=== PATIENT | male | born 1935 | race Caucasian/White ===

== ENCOUNTER → 2017-11-29 08:07 | Outpatient (CLI) | payer MEDICARE, BC | END | disposition home or self-care (01) | LOC: D.RAD 08:07 | DX: R13.10 Dysphagia, unspecified (principal) ==

== ENCOUNTER → 2017-12-11 12:25 | Outpatient (CLI) | payer MEDICARE, BC | END | disposition home or self-care (01) | LOC: D.RAD 12:25 | DX: R13.10 Dysphagia, unspecified (principal) ==

== ENCOUNTER 2018-01-09 08:20 | Day surgery (SDC) | payer MEDICARE, BC ==
[~2018-01-09] VITALS: Ht 170.2 cm; Wt 70.9 kg
--- NOTE | ~2018-01-09 | OP ---
PATIENT NAME: SHAMIR LIU MEDICAL RECORD: [id number] :37 LOCATION:[facility] ADMISSION DATE: SURGEON: FOX ANN DO DATE OF OPERATION: 01/09/2018 PROCEDURE: Colonoscopy with polypectomy. INDICATIONS FOR PROCEDURE: Constipation, periumbilical abdominal pain. SCOPE: Olympus video pediatric colonoscope. MEDICATIONS: Propofol 300 mg IV per anesthesia. WITHDRAWAL TIME: 14 minutes. ESTIMATED BLOOD LOSS: Minimal. COMPLICATIONS: None. FINDINGS: Informed consent was given. The patient was made comfortable with the above medication. After reaching an adequate level of sedation by slow IV push, the patient was placed on his left side. A digital rectal examination was performed and was normal. There was some enlargement of the prostate without any nodules palpated. The endoscope was advanced under direct visualization through the rectum to the cecum, confirmed by the presence of the appendiceal orifice and ileocecal valve. The endoscope was slowly withdrawn and the mucosa was carefully examined. The prep quality was good. There were 4 polyps visualized on today's examination. The first was located in the cecum. It was a benign appearing sessile polyp, which measured approximately 5 mm in diameter. It was removed using a cold snare in 1 piece. There were 2 polyps located in the ascending colon, which ranged in size from 3-5 mm in diameter. They were both a mix between sessile and flat polyp with a lacy pattern. They were both removed using a cold snare. In the sigmoid colon, there was a benign appearing sessile polyp, which measured approximately 3-4 mm in diameter. It was removed using a cold snare in 1 piece. There was moderate diverticulosis in the sigmoid colon without evidence of diverticulitis. Retroflexion was performed in the rectum with visualization of grade I internal hemorrhoids without bleeding. The endoscope was withdrawn from the patient. The patient tolerated the procedure well and there were no complications. IMPRESSION: 1. Moderate diverticulosis of the sigmoid colon. 2. Grade I internal hemorrhoids without bleeding. 3. Four separate polyps removed as described above. Locations included the cecum, ascending colon, and sigmoid colon. PLAN AND RECOMMENDATIONS: 1. Discharge home when recovery parameters are met. 2. Follow up biopsy specimen results. 3. High fiber diet. 4. Supplement diet with Metamucil 1 tablespoon daily. 5. MiraLax 1 cap daily for constipation. 6. Notify the GI clinic if constipation does not improve with the combination of Metamucil and MiraLax. If this is the case, we will consider adding Linzess to medication regimen. OPERATIVE REPORT [id number] SHAMIR LIU. No further colonoscopies are necessary based on the patient's age, unless symptoms warrant evaluation. TRANSINT:[id number] Voice Confirmation ID: [id number] DOCUMENT ID: [id number] FOX ANN DO at 1422 CC: [id number] DICTATION DATE: 01/09/18 1055 A R COLLECTIONS REP: 01/09/18 1107 [facility] 01/09/18 [address] [place] [address]
[2018-01-09] MEDS ORDERED: PROSCAR5 MG PO (08:46)
[2018-01-09] MEDS ORDERED: TERAZOSIN HCL2 MG (08:47)
[2018-01-09] MEDS ORDERED: SYNTHROID50 MCG PO (08:48)
[2018-01-09] MEDS ORDERED: FISH OIL 1,0001 CA1 PO (08:49)
[2018-01-09] MEDS ORDERED: SUPER B COMPLE150 MG PO (08:49)
[2018-01-09] MEDS ORDERED: CENTRUM MEN'S1 EACH PO (08:49)
[2018-01-09] MEDS ORDERED: GLUCOSAMINE HC500 MG (08:50)
[2018-01-09] MEDS ORDERED: MELATONIN10 M1 PO (08:50)
[2018-01-09] MEDS ORDERED: PROBIOTIC250 MG PO (08:50)
[2018-01-09 09:00] VITALS: BP 133/78; Ht 170.2 cm; Wt 70.9 kg
[2018-01-09 09:06] LABS: BASOPHILS 0.1 % (0-2); EOSINOPHILS 0.3 % (0-7); HEMATOCRIT 42.8 % (42.0-54.0); HEMOGLOBIN 14.6 g/dL (13.5-17.5); IMMATURE GRANULOCYTES 0.4 % (0-5); LYMPHOCYTES 27.2 % (15-50); MCH 34.7 pg (26.0-34.0); MCHC 34.1 g/dL (31.0-37.0); MCV 101.7 fL (80.0-100.0); MONOCYTES 8.2 % (2-11); NEUTROPHILS 63.8 % (40-80); PLATELET COUNT 155 10x3/uL (130-400); RBC 4.21 10x6/uL (4.20-6.10); RDW 13.3 % (11.5-14.5)
[2018-01-09 09:19] LABS: ANION GAP 13.9 mmol/L (8-16); CALCIUM 8.4 mg/dL (8.5-10.1); CARBON DIOXIDE 25.4 mmol/L (21.0-32.0); CREATININE - SERUM 1.7 mg/dL (0.6-1.3); POTASSIUM - SERUM 4.3 mmol/L (3.5-5.1)
== END 2018-01-09 11:37 | disposition home or self-care (01) ==
LOC: D.OPS 08:20
PROVIDERS: Anesthesiology
DX: K57.30 Diverticulosis of large intestine without perforation or abscess without bleeding (principal); K64.0 First degree hemorrhoids; D12.0 Benign neoplasm of cecum; D12.2 Benign neoplasm of ascending colon; K63.5 Polyp of colon; Z01.812 Encounter for preprocedural laboratory examination

== ENCOUNTER 2018-01-21 10:35 | Day surgery (SDC) | payer MEDICARE, BC ==
[~2018-01-21] VITALS: Ht 170.2 cm; Wt 70.5 kg
--- NOTE | ~2018-01-21 | OP ---
PATIENT NAME: SHAMIR LIU MEDICAL RECORD: [id number] :37 LOCATION:[facility] ADMISSION DATE: SURGEON: FOX ANN DO DATE OF OPERATION: 01/21/2018 PROCEDURE: EGD with biopsies. INDICATIONS FOR PROCEDURE: Dysphagia, GERD, unspecified upper abdominal pain. SCOPE: Olympus video gastroscope. MEDICATIONS: Propofol 100 mg IV per anesthesia. ESTIMATED BLOOD LOSS: Minimal. COMPLICATIONS: None. FINDINGS AND DESCRIPTION OF PROCEDURE: Informed consent was given. The patient was made comfortable with the above medication. After reaching an adequate level of sedation by slow IV push, the patient was placed on his left side. The endoscope was advanced under direct visualization through the mouth to the second portion of the duodenum. The upper, middle, and lower thirds of the esophagus appeared normal. There were no strictures, rings, or other abnormalities. Cold forceps biopsies were taken from the mid esophagus to rule out the presence of eosinophils. At the GE junction, there was evidence of LA class B reflux-induced esophagitis. Cold forceps, biopsies were taken at the GE junction to rule out the presence of Burgos's mucosa. The endoscope was advanced beyond the GE junction into the stomach and retroflexed to view the cardia, where a small sliding hiatal hernia was present. Throughout the fundus, body, and antrum of the stomach, there was some gastritis characterized by nodular mucosa, erythema, and granularity. Multiple cold forceps biopsies were taken to submit for histopathology and to rule out the presence of H. pylori. In the prepyloric region, there was a single, superficial ulcer with no bleeding stigmata present. The endoscope was advanced beyond the pylorus into the duodenum where there was some erythema and granularity consistent with possible duodenitis. Cold forceps biopsies were taken to submit for histopathology. The endoscope was then withdrawn from the patient. The patient tolerated the procedure well and there were no complications. IMPRESSION: 1. LA class B reflux-induced esophagitis. 2. Small sliding hiatal hernia. 3. Gastritis. 4. Gastric ulcer, duodenitis. PLAN AND RECOMMENDATIONS: 1. Discharge home when recovery parameters are met. 2. Follow up biopsy specimen results. 3. Treat for H. pylori if indicated by biopsies. 4. Continue omeprazole 40 mg daily. 5. Add ranitidine 150 mg p.o. at bedtime and Carafate suspension 1 gram t.i.d. times 2 weeks. 6. Consider gastric emptying scan if biopsies are normal and further workup of patient's symptoms of bloating and abdominal pain. 7. Further workup pending results of above. OPERATIVE REPORT [id number] SHAMIR LIU TRANSINT:[id number] Voice Confirmation ID: [id number] DOCUMENT ID: [id number] FOX ANN DO at 1012 CC: [id number] DICTATION DATE: 01/21/18 1150 MANAGER PROJECT: 01/21/18 1301 [facility] 01/21/18 [facility] [address] [place] [address]
[~2018-01-21 10:35] MED LIST: CENTRUM MEN'S1 EACH PO; FISH OIL 1,0001 CA1 PO; GLUCOSAMINE HC500 MG; MELATONIN10 M1 PO; PROBIOTIC250 MG PO; PROSCAR5 MG PO; SUPER B COMPLE150 MG PO; SYNTHROID50 MCG PO; TERAZOSIN HCL2 MG
[2018-01-21 10:42] LABS: HEMATOCRIT 41.4 % (42.0-54.0); HEMOGLOBIN 14.3 g/dL (13.5-17.5); MCHC 34.5 g/dL (31.0-37.0); MCV 101.5 fL (80.0-100.0); MEAN PLATELET VOLUME 9.4 fL (7.4-10.4); RBC 4.08 10x6/uL (4.20-6.10); RDW 12.9 % (11.5-14.5); WBC 5.1 10x3/uL (4.8-10.8)
[2018-01-21 11:00] VITALS: BP 142/77; Ht 170.2 cm; Wt 70.5 kg
== END 2018-01-21 12:52 | disposition home or self-care (01) ==
LOC: D.OPS 10:35
PROVIDERS: Anesthesiology
DX: K21.0 Gastro-esophageal reflux disease with esophagitis (principal); K44.9 Diaphragmatic hernia without obstruction or gangrene; K29.00 Acute gastritis without bleeding; K29.80 Duodenitis without bleeding

== ENCOUNTER → 2018-04-17 15:39 | Outpatient (CLI) | payer MEDICARE, BC ==
[2018-01-21 11:00] VITALS: BMI 24.3
== END | disposition home or self-care (01) ==
LOC: D.US 15:39
DX: R94.4 Abnormal results of kidney function studies (principal)

== ENCOUNTER → 2018-06-25 09:28 | Outpatient (CLI) | payer MEDICARE, BC | END | disposition home or self-care (01) | LOC: D.US 09:28 | DX: N18.3 Chronic kidney disease, stage 3 (moderate) (principal) ==

== ENCOUNTER 2019-02-20 13:31 | Emergency (ER) | payer MEDICARE, BC ==
[~2019-02-20] VITALS: Ht 170.2 cm; Wt 70.5 kg
[2019-02-20 13:40] VITALS: Ht 170.2 cm; Wt 70.5 kg
[2019-02-20 14:22] LABS: BASOPHILS 0.3 % (0-2); EOSINOPHILS 2.5 % (0-7); HEMATOCRIT 45.7 % (42.0-54.0); HEMOGLOBIN 15.4 g/dL (13.5-17.5); LYMPHOCYTES 36.9 % (15-50); MCH 33.6 pg (26.0-34.0); MCHC 33.7 g/dL (31.0-37.0); MCV 99.8 fL (80.0-100.0); MEAN PLATELET VOLUME 9.4 fL (7.4-10.4); MONOCYTES 7.1 % (2-11); NEUTROPHILS 53.2 % (40-80); PLATELET COUNT 138 10x3/uL (130-400); RBC 4.58 10x6/uL (4.20-6.10); RDW 12.4 % (11.5-14.5); WBC 6.1 10x3/uL (4.8-10.8)
[2019-02-20 14:30] LABS: APTT 33.8 SECONDS (22.8-39.4); INR 0.96 (0.85-1.17); PROTIME 12.3 SECONDS (11.6-15.0)
[2019-02-20 14:36] LABS: CALC OSMOLALITY 285 mosm/kg (275-300); CALCIUM 8.7 mg/dL (8.5-10.1); CARBON DIOXIDE 26.7 mmol/L (21.0-32.0); CHLORIDE - SERUM 104 mmol/L (98-107); CREATININE - SERUM 1.9 mg/dL (0.6-1.3); GLUCOSE 86 mg/dL (74-106); POTASSIUM - SERUM 4.6 mmol/L (3.5-5.1); SODIUM 141 mmol/L (136-145); UREA NITROGEN 30 mg/dL (7-18); eGFR NON AFRICAN AMERICAN 36 mL/min (90-120)
[2019-02-20 15:04] LABS: ALBUMIN 3.8 g/dL (3.4-5.0); ALKALINE PHOSPHATASE 61 U/L (46-116); ALT (SGPT) 28 U/L (10-68); AMYLASE - SERUM 105 U/L (25-115); BILIRUBIN - TOTAL 0.63 mg/dL (0.2-1.3); CREATINE KINASE 108 UL (21-232); LIPASE 268 U/L (73-393); PROTEIN - SERUM 7.1 g/dL (6.4-8.2); TROPONIN-I < 0.017 ng/mL (0.000-0.060)
[2019-02-20 17:39] VITALS: BP 149/83
== END 2019-02-20 17:39 | disposition home or self-care (01) ==
LOC: D.ER 13:31
PROVIDERS: Family Medicine
DX: M79.602 Pain in left arm (principal); R10.33 Periumbilical pain; E07.9 Disorder of thyroid, unspecified

== ENCOUNTER → 2019-03-13 08:25 | Outpatient (CLI) | payer MEDICARE, BC ==
[2019-02-20 13:40] VITALS: BMI 24.3
== END | disposition home or self-care (01) ==
LOC: D.US 08:25 → D.NM 09:30
PROVIDERS: ATTEND Internal Medicine Gastroenterology
DX: R10.11 Right upper quadrant pain (principal); R10.33 Periumbilical pain; R68.81 Early satiety; R14.0 Abdominal distension (gaseous)

== ENCOUNTER → 2019-04-22 08:26 | Outpatient (CLI) | payer MEDICARE, BC ==
[2019-02-20 13:40] VITALS: BMI 24.3
--- NOTE | 2019-04-24 16:48 | ST ---
PATIENT:SHAMIR LIU MEDICAL RECORD: [id number] SEX: M LOCATION:[facility] ORDER #: ADMISSION DATE: 04/22/19 AGE OF PATIENT: 83 REFERRING PHYSICIAN: INTERPRETING PHYSICIAN: TERA DUMAS MD DATE OF SERVICE: 04/22/2019 PROCEDURE: Nuclear stress test. INDICATION: Chest pain, shortness of breath. He was exercised on standard Lexiscan protocol with 33 mCi of sestamibi injected at peak stress, 11 mCi used previously for rest images. FINDINGS: Gated SPECT reveals a preserved ejection fraction at 70% with good wall motioning and thickening and brightening throughout all segments. SPECT imaging: Cardiolite was used as myocardial perfusion agent. There is reversibility anteriorly and apically. This includes the basal, mid, apical, anterior segments as well as the apex itself. The degree of reversibility is mild. The amount of myocardium involved is moderate. OVERALL IMPRESSION: 1. This is an intermediate risk abnormal nuclear stress test. Reversible ischemia anteroapically. 2. Gated SPECT reveals preserved ejection fraction at 70%. The current scan does suggest the presence of hemodynamically significant coronary artery disease. TRANSINT:[id number] Voice Confirmation ID: [id number] DOCUMENT ID: [id number] TERA DUMAS MD at 1648 CC: SANDOVAL ÁLVAREZ MD [id number] DICTATION DATE: 04/23/19 1048 IC DESIGNER STANDARD CELLS: 04/24/19 0647 [facility] CLI 04/22/19 [address] [place] [address]
== END | disposition home or self-care (01) ==
LOC: D.HCCARDIO 08:26
PROVIDERS: ATTEND Internal Medicine Interventional Cardiology
DX: R07.9 Chest pain, unspecified (principal)

== ENCOUNTER 2019-04-30 08:49 | Outpatient (CLI) | payer MEDICARE, BC ==
[~2019-04-30] VITALS: Ht 167.6 cm; Wt 70.5 kg
--- NOTE | ~2019-04-30 | OP ---
PATIENT NAME: SHAMIR LIU MEDICAL RECORD: [id number] :37 LOCATION:D.CAT ADMISSION DATE: SURGEON: TERA DUMAS MD DATE OF OPERATION: 04/30/2019 PROCEDURES: 1. Left heart catheterization. 2. Selective coronary angiography. 3. Left ventriculogram. INDICATIONS: Angina, abnormal nuclear stress test. PROCEDURE IN DETAIL: After informed consent was obtained and after a detailed explanation of the risks, benefits as well as alternative therapies, the patient elected to proceed with angiogram and heart catheterization. The right radial area was prepped and draped in normal sterile fashion. Right radial artery was cannulated via modified Seldinger technique with placement of 5-Arabic sheath. All catheters exchanged through this sheath. FINDINGS: Left ventriculogram was performed in standard 30-degree MONTENEGRO view, reveals good cardiac wall motion throughout all segments. Overall ejection fraction estimated 60%. SELECTIVE CORONARY ANGIOGRAPHY: Left main, left anterior descending, left circumflex, right coronary artery are all smooth-walled vessels with no angiographic evidence of coronary artery disease. OVERALL IMPRESSION: 1. No angiographic evidence of coronary artery disease. 2. Normal left heart pressures. 3. Normal left ventricular systolic function. Chest pain is noncardiac in etiology. No further cardiac workup needs to be ascertained. TRANSINT:[id number] Voice Confirmation ID: [id number] DOCUMENT ID: [id number] TERA DUMAS MD CC: [id number] DICTATION DATE: 04/30/19 1125 FOOD DEMONSTRATOR: 04/30/19 1340 [facility] [address] [place] [address]
--- NOTE | ~2019-04-30 | HEMODYNAMI ---
PATIENT:SHAMIR LIU MEDICAL RECORD: [id number] : 37 LOCATION:[facility] ADMISSION DATE: 04/30/19 Generatedon:04/30/201911:28 Patient name: SHAMIR LIU Patient #: [id number] SSN: [id number] : 1935 Date of study: 04/30/2019 Page: Of Hemodynamic Procedure Report Patient Data Patient Demographics Procedure consent was obtained First Name: SHAMIR Gender: Male Last Name: NOE : 1935 [facility] Initial: D Age: 83 year(s) Patient #: [id number] Race: SSN: [id number] Additional ID: [id number] Contact details Address: [address] [address] State: [place] City: [place] Zip code: [address] Past Medical History Allergies: No known allergies Admission Admission Data Admission Date: 04/30/2019 Admission Time: 8:49 Arrival Date: 04/30/2019 Arrival Time: 0:00 Insurance Payor: Medicare [facility] #: [id number] Height (in.): 66.14 BSA: 1.79 (m2) Height (cm.): 168 BMI: 24.8 (kg/m2) Weight (lbs.): 154.32 Weight (kg.): 70 Lab Results Lab Result Date: 04/30/2019 Lab Result Time: 0:00 Biochemistry Name Units Result Min Max BUN mg/dl 29 --(----)-* 7 18 Creatinine mg/dl 1.7 --(----)-* 0.6 1.3 eGFR ml/min 41 *-(----)-- 90 120 NONAFRICAN CBC Name Units Result Min Max Hematocrit % 40.5 -*(----)-- 42 54 Hemoglobin g/dl 13.5 --(*---)-- 13.5 17.5 Procedure Procedure Types Cath Procedure Diagnostic Procedure LHC LHC w/Coronaries Procedure Description Procedure Date Procedure Date: 04/30/2019 Procedure Start Time: 11:15 Procedure End Time: 11:25 Procedure Staff Name Function Wyatt Rocha MD Performing Physician Kim Galvin RT Monitor Emelia Roberts RT Scrub Arcadio Goldman RN Nurse Procedure Data Cath Procedure Fluoroscopy Diagnostic fluoroscopy Total fluoroscopy Time: 2 time: 2 min min Diagnostic fluoroscopy Total fluoroscopy dose: 481 dose: 481 mGy mGy Contrast Material Contrast Material Type Amount (ml) Isovue 370 58 Entry Location Entry Primary Successful Side Size Upsize Upsize Entry Closure Mckinney ccessful Closure Location (Fr) 1 (Fr) 2 (Fr) Remarks Device Remarks Radial Right 6 Fr Mechanical artery Short Compression Estimated blood loss: 5 ml Diagnostic catheters Device Type Used For End Catheter Placement DIAGNOSTIC Adams 110cm 5 Procedure Fr catheter ([id number]) Procedure Complications No complications Procedure Medications Medication Administration Route Dosage 0.9% NaCl I.V. 100 ml/hr Oxygen etCO2 Nasal cannula 2 l/min Heparin Flush Bag added to field 2 bags (1000units/500ml NS) Lidocaine 2% added to field 20 Radial Cocktail added to field 1 syringe (Verapamil 2mg/Nitro 400mcg/Heparin 1500units) Versed I.V. 1 mg Fentanyl I.V. 25 mcg Radial Cocktail I.A. 1 syringe (Verapamil 2mg/Nitro 400mcg/Heparin 1500units) Hemodynamics Rest BSA: 1.79 (m2) HGB: 13.5 (g/dl) O2 Consumption: Estimated: 197.43 (ml/min) O2 Co nsumption indexed: Estimated:110.3 (ml/min/m) Heart Rate: 60 (bpm) Snapshots Pre Cath Intra NCS Post Cath Vital Signs Time Heart Resp SPO2 etCO2 NIBP (mmHg) Rhythm Pain Sedation Rate (ipm) (%) (mmHg) Status Level (bpm) 11:10:46 50 12 98 30.7 125/86(93) NSR 0 (11) 10(A) , No pain 11:14:54 61 14 94 37.4 124/70(104) NSR 0 (11) 10(A) , No pain 11:19:14 66 15 96 41.2 108/56(75) NSR 0 (11) 9(A) , No pain 11:23:32 75 23 95 41.9 113/59(86) NSR 0 (11) 9(A) , No pain Medications Time Medication Route Dose Verified Delivered Reason Notes Effectiveness by by 11:09:38 0.9% NaCl I.V. 100 Arcadio Arcadio Per ml/hr Jones Goldman physician RN RN 11:10:01 Oxygen etCO2 2 l/min Arcadio Arcadio for low 02 Nasal Jones Goldman sats cannula RN RN 11:10:11 Heparin Flush added 2 bags Arcadio Arcadio used for Bag to Jones Goldman procedure (1000units/500ml field RN RN NS) 11:10:22 Lidocaine 2% added 20ml Arcadio Arcadio for local to vial Lorigan Lorigan anesthetic field RN RN 11:10:38 Radial Cocktail added 1 Arcadio Arcadio used for (Verapamil to syringe Lorigan Jones procedure 2mg/Nitro field FRANK RN 400mcg/Heparin 1500units) 11:14:19 Versed I.V. 1 mg Arcadio Arcadio for sedation Jones Goldman RN RN 11:14:26 Fentanyl I.V. 25 mcg Arcadio Arcadio for sedation Jones Goldman RN RN 11:18:17 Radial Cocktail I.A. 1 Arcadio Wyatt for (Verapamil syringe Jones Rocha MD vasodilation 2mg/Nitro RN 400mcg/Heparin 1500units) Procedure Log Time Note 10:50:14 Informed consent obtained and on chart 10:53:13 Lab Result : BUN 29 mg/dl 10:53:13 Lab Result : Hematocrit 40.5 % 10:53:13 Lab Result : eGFR NONAFRICAN 41 ml/min 10:53:13 Lab Result : Creatinine 1.7 mg/dl 10:53:13 Lab Result : Hemoglobin 13.5 g/dl 10:53:25 Arrival Date: 04/30/2019 12:00:00 AM 10:53:54 Insurance Payor : Medicare 10:53:59 Patient Height : 66.14 inches 10:54:05 Patient Weight : 154.32 lbs 10:55:15 Procedure Status Elective Heart Cath (OP). 10:55:21 Arcadio Goldman RN sent for patient. Start room use. 10:55:24 Time tracking: Regular hours (M-F 7:00 - 5:00) 10:55:33 Plan of Care:Hemodynamics will remain stable., Cardiac rhythm will remain stable., Comfort level will be maintained., Respiratory function will remain adequate., Patient/ family verbilizes understanding of procedure., Procedure tolerated without complication., Recovers from procedure without complications.. 10:57:04 Patient allergic to No known allergies 10:57:47 Stress Test: yes; abnormal ANTEROAPICALLY 10:58:12 ACC Patient presents with Stable Angina CCS Anginal Class 2--Slight limitation of ordinary activity. 11:00:45 Risk of Mortality: 1.0 11:00:49 Risk of blood transfusion: 0.6 11:00:53 Risk of FRITZ: 4.0 11:01:46 Patient received from Pre/Post Procedure Room to CCL 1 Alert and oriented. Tansferred to table in Supine position. 11:01:50 Warm blankets applied, and sylvia hugger turned on for patient comfort. 11:01:51 Correct patient and procedure confirmed by team. 11:01:52 ECG and BP/O2 sat monitors applied to patient. 11:09:14 Pre procedure: right dorsailis pedis pulse 1+ Palpable, but thready & weak; easily obliterated 11:09:23 Vital chart was started 11:09:38 0.9% NaCl 100 ml/hr I.V. was administered by Arcadio Goldman RN; Per physician; Verbal order read back and verified. 11:10:01 Oxygen 2 l/min etCO2 Nasal cannula was administered by Arcadio Goldman RN; for low 02 sats; Verbal order read back and verified. 11:10:11 Heparin Flush Bag (1000units/500ml NS) 2 bags added to field was administered by Arcadio Goldman RN; used for procedure; Verbal order read back and verified. 11:10:22 Lidocaine 2% 20ml vial added to field was administered by Arcadio Goldman RN; for local anesthetic; Verbal order read back and verified. 11:10:38 Baseline sample Acquired. 11:10:38 Radial Cocktail (Verapamil 2mg/Nitro 400mcg/Heparin 1500units) 1 syring e added to field was administered by Arcadio Goldman RN; used for procedure; Verbal order read back and verified. 11:10:44 Rhythm: sinus rhythm 11:10:45 Full Disclosure recording started 11:10:57 H&P Date Dictated: 04/08/2019 Within 30 days and on chart.. 11:10:58 Pre-procedure instructions explained to patient. 11:10:58 Pre-op teaching completed and patient verbalized understanding. 11:11:01 Family in waiting room. 11:11:03 Is the patient allergic to Iodine/contrast media? No. 11:11:05 Was the patient premedicated? N/A 11:11:07 Is patient on blood thinner?No 11:11:09 Patient diabetic? No. 11:11:11 If diabetic: On Metformin? N/A 11:11:12 - 11:11:15 ----Pre-sedation anethsthesia assessment.---- 11:12:41 Previous problem with sedation/anesthesia? No ? 11:12:42 Snore? Yes 11:12:43 Sleep apnea? No 11:12:45 Deviated septum? No 11:12:46 Opens mouth fully? Yes 11:12:47 Sticks out tongue? Yes 11:12:49 Airway obstruction? No ? 11:12:51 Dentures? No ? 11:12:53 Modified Pedro's test Ulnar < 7 seconds 11:12:56 Patient pain scale 0/10 ?. 11:13:31 IV patent on arrival in left antecubital with 0.9% NaCl at O. 11:13:37 Right Radial & Right Groin area was prepped with chlora-prep and draped in sterile fashion 11:13:38 Alarms reviewed by R. N. 11:13:39 Sharps counted by scrub and verified by R.N. 11:13:40 --------ALL STOP TIME OUT------ 11:13:40 Final Timeout: patient, procedure, and site verified with staff and physician. All members of the team are in agreement. 11:13:42 Right Radial & Right Groin site verified by team. 11:13:46 Fire Safety Assessment: A--An alcohol-based skin anteseptic being used preoperatively., C--Open oxygen or nitrous oxide is being used., D--An ESU, laser, or fiber-optic light is being used. 11:13:50 Physical assessment completed. ASA score P 2 - A patient with mild systemic disease as per Wyatt Rocha MD. 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 11:14:02 Maximum allowable contrast dose (3.7 X eGFR X 0.75)41 ml. 11:14:06 Sedation plan: IV Moderate Sedation Medication:Versed, Fentanyl 11:14:11 Use device set Radial Dx or PCI 11:14:13 ACIST Syringe (14330) opened to sterile field. 11:14:13 Medline Cath Pack ([id number]) opened to sterile field. 11:14:14 Bag Decanter (2002) opened to sterile field. 11:14:15 ACIST Hand Control (48599) opened to sterile field. 11:14:15 ACIST Manifold (95319) opened to sterile field. 11:14:16 Tegaderm 4 x 4 (1626W) opened to sterile field. 11:14:17 MBrace Wrist Support ([id number]) opened to sterile field. 11:14:19 Versed 1 mg I.V. was administered by Arcadio Goldman RN; for sedation; Verbal order read back and verified. 11:14:19 EMERALD Guide Wire (120-373) opened to sterile field. 11:14:20 SHEATH 6FR RAIN (1373976) opened to sterile field. 11:14:26 Fentanyl 25 mcg I.V. was administered by Arcadio Goldman RN; for sedation; Verbal order read back and verified. 11:15:11 Procedure started. 11:15:41 Local anesthetic to right radial artery with Lidocaine 2% by Wyatt Rocha MD.INITIAL ACCESS ONLY 11:17:12 A 6 Fr Short sheath was inserted into the Right Radial artery 11:17:27 A DIAGNOSTIC Adams 110cm 5 Fr catheter (083825) was advanced over the wire and used for Procedure. 11:18:10 Injector settings: Ml/sec: 5, Volume: 15, 11:18:13 LV gram done using MONTENEGRO 11:18:17 Radial Cocktail (Verapamil 2mg/Nitro 400mcg/Heparin 1500units) 1 syring e I.A. was administered by Wyatt Rocha MD; for vasodilation; Verbal order read back and verified. 11:18:48 EF : 60 % 11:18:52 LCA angiography performed. 11:18:57 Injector settings: Ml/sec: 3, Volume: 6, 11:20:47 UNABLE TO CANNULATE WITH CATHETER, REMOVED AND CHANGED TO AR 2 CATHETER . 11:21:04 GUIDE 6FR AR 2.0 catheter (CN1PO64) opened to sterile field. 11:22:01 RCA angiography performed. 11:22:23 Catheter removed. 11:22:30 ZEPHYR REGULAR TR BAND (985139) opened to sterile field. 11:22:58 Sheath removed intact; hemostasis achieved with Mechanical Compression to the Right Radial artery. 11:23:14 Procedure ended.(Physican Out) 11:23:49 Fluoroscopy time 02.00 minutes. 11:23:53 Fluoroscopy dose: 481 mGy 11:23:53 Flurop Dose total: 481 11::58 Dose Area Product 14089 mGy/cm. 11:24:02 Contrast amount:Isovue 370 58ml. 11:24:04 Sharps counted by scrub and verified by R.N. 11:24:07 Maximum allowable dose exceeded? No. 11:24:14 Gilman band inflated with 18cc of air. 11:24:17 Post Procedure Pulses reassessed and unchanged 11:24:20 Post procedure: right dorsailis pedis pulse 1+ Palpable, but thready & weak; easily obliterated. 11:24:43 Post-procedure physical assessment completed. ASA score P 2 - A patient with mild systemic disease as per Wyatt Rocha MD. 11:24:46 Post procedure rhythm: unchanged. 11:24:48 Estimated blood loss: 5 ml 11:24:50 Post procedure instruction explained to patient.Patient verbalizes understanding. 11:24:50 Patient needs reinforcement of post procedure teaching. 11:25:31 Procedure and supply charges have been captured, reviewed, submitted an d are correct. 11:25:36 Procedure Complication : No complications 11:25:39 Vital chart was stopped 11:25:42 [facility] Findings: mild to moderate CAD (<70%) 11:25:45 Operative report dictated upon procedure completion. 11:25:46 See physician's report for complete and final results. 11:25:48 Report given to Pre/Post Procedure Room. 11:25:52 Patient transfered to Pre/Post Procedure Room with Stretcher. 11:25:55 Procedure ended. 11:25:55 Full Disclosure recording stopped 11:26:39 End room use (Document Last) Device Usage Item Name Manufacture Quantity Catalog Hospital Part Current Minima l Lot# / Number Charge Number Stock Stock Serial# Code ACIST Acist 1 19230 825104 185749 087263 20 Syringe Medical (75810) Systems Inc Medline Medline 1 [id number] 31053 884723 5 Cath Pack ([id number]) Bag Microtek 1 2001S 354589 87938 324289 5 Decanter Medical Inc. () ACIST Hand Acist 1 83170 811186 796139 423549 5 Control Medical (64894) Systems Inc ACIST Acist 1 18250 370038 372476 487901 5 Manifold Medical (54644) Systems Inc Tegaderm 4 3M 1 1626W 551694 087689 939558 5 x 4 (1626W) MBrace Advanced 1 140-0250-00 315839 20617 223769 5 Wrist Vascular Support Dynamics ([id number]) EMERALD Cardinal 1 502-455 154406 206063 564822 5 Guide Wire Health (502455) SHEATH 6FR Cardinal 1 [id number] 003821 5495895 575998 5 [facility] (8594433) DIAGNOSTIC Terumo 1 40-5111 246966 166686 239147 5 Adams 110cm 5 Fr catheter (906372) GUIDE 6FR Medtronic 1 [id number] 393799 05827 985446 1 AR 2.0 catheter ([id number]) ZEPHYR Cardinal 1 327643 545484 1603268 204778 5 REGULAR TR Health BAND (419192) Signature Audit Meredith Stage Time Signature Unsigned Intra-Procedure 04/30/2019 Kim Galvin 11:27:29 AM RT(R) Intra-Procedure 04/30/2019 Arcadio 11:27:47 AM Jones MARIE Intra-Procedure 04/30/2019 Wyatt Rocha 11:28:20 AM [facility] [address] [place] [address]
[2019-04-30] MEDS ORDERED: RESTORIL15 MG PO (09:25)
[2019-04-30 09:35] VITALS: BP 154/55; Ht 167.6 cm; Wt 70.5 kg
[2019-04-30 09:53] LABS: BASOPHILS 0.4 % (0-2); EOSINOPHILS 5.9 % (0-7); HEMATOCRIT 40.5 % (42.0-54.0); HEMOGLOBIN 13.5 g/dL (13.5-17.5); IMMATURE GRANULOCYTES 0.2 % (0-5); LYMPHOCYTES 27.2 % (15-50); MCH 33.5 pg (26.0-34.0); MCHC 33.3 g/dL (31.0-37.0); MCV 100.5 fL (80.0-100.0); MEAN PLATELET VOLUME 9.4 fL (7.4-10.4); MONOCYTES 8.8 % (2-11); NEUTROPHILS 57.5 % (40-80); PLATELET COUNT 163 10x3/uL (130-400); RBC 4.03 10x6/uL (4.20-6.10); RDW 13.9 % (11.5-14.5); WBC 5.5 10x3/uL (4.8-10.8)
[2019-04-30 09:59] LABS: ANION GAP 10.2 mmol/L (8-16); CALCIUM 8.6 mg/dL (8.5-10.1); CARBON DIOXIDE 27.3 mmol/L (21.0-32.0); CHOL - HDL RATIO 2.9 ratio (2.3-4.9); CREATININE - SERUM 1.7 mg/dL (0.6-1.3); LDL-HDL RATIO 1.5 ratio (1.5-3.5); POTASSIUM - SERUM 4.5 mmol/L (3.5-5.1)
--- NOTE | 2019-04-30 11:35 | NUR ---
REC'D TO ROOM 8 VIA STRETCHER FROM FRUIT WASHER. MONITORS ESTAB. PT AWAKE, ALERT. SEE SALES SERVICE REPRESENTATIVE. ALARMS ON AND C/L IN REACH.
--- NOTE | 2019-04-30 11:50 | NUR ---
R WRIST SITE C/D/I, NO S/S BLEEDING OR HEMATOMA. FRIENDS AT BS VISITING, VSS. C/L IN REACH.
--- NOTE | 2019-04-30 12:20 | NUR ---
DR. DUMAS IN TO SEE PT. VSS. R WRIST SITE C/D/I.
--- NOTE | 2019-04-30 12:45 | NUR ---
3CC AIR REMOVED FROM Z BAND, BLEEDING NOTED, AIR REPLACE - STILL OOZING. Z BAND REMOVED AND PRESSURE HELD X 10MIN - NO BLEEDING NOTED AFTER 10 MIN - PRESSURE DSG APPLIED. WILL CONT CLOSE MONITORING.
--- NOTE | 2019-04-30 13:05 | NUR ---
R WRIST SITE C/D/I, PULSES PALP AND BRISK CAP REFILL.
--- NOTE | 2019-04-30 13:15 | NUR ---
R WRIST SITE C/D/I, NO S/S BLEEDING OR HEMATOMA. PIV D/C'D INTACT, DSG APPLIED. PT ALLOWED UP TO GET DRESSED.
--- NOTE | 2019-04-30 13:35 | NUR ---
R WRIST C/D/I - ARM BOARD IN PLACE. ALL D/C INSTRUCTIONS REVIEWED WITH PT. PT D/C'D VIA W/C TO PRIVATE VEHICLE WITH ALL PAPERWORK AND BELONGINGS.
== END 2019-04-30 13:35 | disposition home or self-care (01) ==
LOC: D.CATH 08:49
PROVIDERS: ATTEND Internal Medicine Interventional Cardiology
DX: I20.9 Angina pectoris, unspecified (principal); R94.30 Abnormal result of cardiovascular function study, unspecified; R07.9 Chest pain, unspecified

== ENCOUNTER 2020-05-31 06:35 | Day surgery (SDC) | payer MEDICARE, BC ==
[~2020-05-31 06:35] MED LIST changes: +RESTORIL15 MG PO
[2020-05-31 06:59] LABS: HEMATOCRIT 40.4 % (42.0-54.0); HEMOGLOBIN 13.3 g/dL (13.5-17.5); MCH 34.1 pg (26.0-34.0); MCHC 32.9 g/dL (31.0-37.0); MCV 103.6 fL (80.0-100.0); MEAN PLATELET VOLUME 9.5 fL (7.4-10.4); RBC 3.9 10x6/uL (4.20-6.10); RDW 13.3 % (11.5-14.5); WBC 4.3 10x3/uL (4.8-10.8)
== END 2020-05-31 10:06 | disposition home or self-care (01) ==
LOC: D.OPS 06:35
PROVIDERS: Anesthesiology
DX: R13.10 Dysphagia, unspecified (principal); R10.10 Upper abdominal pain, unspecified; R14.0 Abdominal distension (gaseous); K21.00 Gastro-esophageal reflux disease with esophagitis, without bleeding; K22.2 Esophageal obstruction; K44.9 Diaphragmatic hernia without obstruction or gangrene; K29.70 Gastritis, unspecified, without bleeding

== ENCOUNTER → 2020-06-10 07:56 | Outpatient (CLI) | payer MEDICARE, BC ==
[2020-05-31 07:19] VITALS: BMI 24.0
== END | disposition home or self-care (01) ==
LOC: D.NM 07:56
PROVIDERS: ATTEND Internal Medicine Gastroenterology
DX: R10.10 Upper abdominal pain, unspecified (principal); K21.9 Gastro-esophageal reflux disease without esophagitis; R14.0 Abdominal distension (gaseous)